=== PATIENT | male | born 1990 | race Caucasian/White ===

== ENCOUNTER 2016-09-11 15:58 | Emergency (ER) | payer SELFPAY ==
--- NOTE | 2016-09-13 13:23 | ER ---
ADMIT: 09/11/2016 RM/LOC: ER [facility] MR#: [id number] [id number] [id number] [address] [place] [address] Emergency Room Report SEX: M AGE: 26 : 1990 DATE: 09/11/2016 CHIEF COMPLAINT: Injury to head. HISTORY OF PRESENT ILLNESS: This is a 26-year-old male, who presents after falling off a ladder where he estimates to be less than 2 to 3 steps and hitting the back of his head. Denies any loss of consciousness. Otherwise, feels well at present. Does have a laceration on the back of his head. Denies any changes in his vision, back pain, numbness, weakness, or shortness of breath. No nausea or vomiting. COURSE IN ER: GENERAL: The patient is seen and examined. He is alert, in no acute distress. HEAD: He does have a 3 cm linear laceration that does not extend to the galea. Tender to palpation. EYES: Equal and reactive. Extraocular muscles are intact. NECK: Supple and nontender. Full range of motion. Painless. ENT: No obvious dental injuries. No hemotympanum. NEURO: He is alert and oriented. Sensation and motor are equal in the upper and lower extremities compared bilaterally. CHEST: Nontender. ABDOMEN: Soft and nontender. PROCEDURE NOTE: Laceration repair of 3 cm linear laceration on the posterior scalp. Thoroughly cleaned with UltraDeck and explored to base. No obvious foreign bodies identified and repaired using 5 julisa. Wound edges were well everted. He was updated on his tetanus today. IMPRESSION: Laceration to his posterior scalp. DISPOSITION: The patient was discharged to follow up in 5 to 7 days to have the sutures removed. He was instructed not to submerge the wound until julisa are removed. It is okay to shower, wash it with warm soapy water. Tylenol and Motrin as needed for pain. Return with any worsening signs or symptoms. Questions sought and answered to the best of my ability and to the patient's satisfaction. Discharged in stable condition. RACHEL Perez / Darek Leon MD / jacey JOB #: [id number] CC: Darek Leon MD, Attending Physician Emma Rooney MD, Family Physician
== END 2016-09-11 16:40 | disposition home or self-care (01) ==
LOC: ER 15:58
PROC: 0HQ0XZZ Repair Scalp Skin, External Approach (ICD-10-PCS; principal; 2016-09-11)
DX: S01.01XA Laceration without foreign body of scalp, initial encounter (principal); F17.210 Nicotine dependence, cigarettes, uncomplicated; W11.XXXA Fall on and from ladder, initial encounter